=== PATIENT | male | born 1950 | race Caucasian/White ===

== ENCOUNTER 2020-08-09 12:18 | Day surgery (SDC) | payer MEDICARE ==
[2020-08-09] VITALS (10 sets, daily range): BP systolic 116–164; BP diastolic 73–102; PULSE 64–73; TEMP 98–98.7
[~2020-08-09] VITALS: Ht 175.3 cm; Wt 84.9 kg
[2020-08-09] MEDS ORDERED: PRINZIDE 25 MG-1 TAB PO (13:07)
[2020-08-09] MEDS ORDERED: LOPID 600M600 MG/TAB PO (13:08)
[2020-08-09] MEDS ORDERED: ZOCOR 20MG20 MG PO (13:08)
[2020-08-09] MEDS ORDERED: ASPIRIN 81M81 MG/TA2 PO (13:09)
--- NOTE | 2020-08-09 19:31 | NUR ---
Patient resting in bed. Cbi slowed. Light pink output. He tolerated dinner. Iv to INT. Vss, improved after tylenol for pain. Patient spoke to his on the phone and updated her. Scds ble. Report to night nurse
--- NOTE | 2020-08-09 20:00 | NUR ---
Report received, assumed care for shift lab technician. Assessment complete. VS stable. A&Ox3. Denies pain/nausea/shortness of breath. CBI running at slow to mmoderate reate-output light pink-no clots noted. Plan of care discussed for this shift to include HS meds/calling for questions/concerns/pain. Verbalizes understanding/denies questions/concerns. Call light in reach. Will monitor.
[2020-08-10 00:20] VITALS: BP 126/77; PULSE 56; TEMP 98.1
[2020-08-10 03:33] VITALS: BP 126/77; PULSE 81; TEMP 97.9
[2020-08-10 07:44] VITALS: BP 137/74; PULSE 96; TEMP 98.4
--- NOTE | 2020-08-10 08:00 | NUR ---
PATIENT IS A&O. VSS. DENIES ANY PAIN. CBI INFUSING AT MOD RATE TO KEEP URINE PINK. THOMPSON TO DD. WHEN CBI TURNED DOWN, URINE TURNS TO A DARK RED. PATIENT SCHEDULED FOR MITOMYCIN THIS AM. SRAVANTHI MONDRAGON AWARE. HEAD TO TOE ASSESSMENT COMPLETE. NO C/O N/V. RIGHT HAND IV TO INT. BREAKFAST TRAY AT BEDSIDE. AM MEDS GIVEN. NO OTHER NEEDS. CALL LIGHT IN REACH.
--- NOTE | 2020-08-10 09:27 | NUR ---
LILLY met with the patient to discuss discharge plan. The patient lives in [place] with his , Christina (ph#[phone]). He reports independence with ADLs and does not have any DME. The patient's primary care provider is Molly Woods at the [facility] and he receives his medications from [facility]. He reports no difficulties obtaining his meds. The patient does not have a DPOA-HC in EMR, but he states that he does have one completed and that his is his DPOA-HC. The patient plans to return home with his upon discharge. No additional needs at this time.
--- NOTE | 2020-08-10 10:19 | NUR ---
Met with pt earlier this am to discuss mitomycin administration. Pt was aware that this would likely happen. Mitomycin handouts were provided to pt and reviewed verbally as well. Reinforced importance of repositioning q 15 minutes during 2 hour dwell time and precautions to follow after actualy mitomycin is drained. Chemotherapy precautions were observed during the administration of the mitomycin with appropriate PPE used proper disposal of contaminated items, and signage placed at door for other staff instruction.
--- NOTE | 2020-08-10 10:23 | NUR ---
Report to Carmen FISHMAN after administration.
--- NOTE | 2020-08-10 11:55 | NUR ---
First visit from the shoe folder. Chaplain mcgill for patient while standing outside of door.
[2020-08-10 12:27] VITALS: BP 119/75; PULSE 91; TEMP 97.9
--- NOTE | 2020-08-10 12:27 | NUR ---
Two hour dwell time is completed and dickens was unclamped and allowed to drain. Urine is red in color but no clots were seen. 500ml of urine was drained and then CBI was started slowly. Chemotherapy precautions were followed during this process and pt is still hoping to see Dr Roldan to talk about his surgery. Report to Carmen FISHMAN.
[2020-08-10 15:57] VITALS: BP 121/68; PULSE 63; TEMP 97.8
--- NOTE | 2020-08-10 16:30 | NUR ---
CBI discomtinued. Pericare provided before and after removal. 15ml water removed from the balloon. Tip intact. Chemo precautions followed by the nurse. Patient tolerated well. Instilled 250ml fluid into bladder. Patient informed to void in urinal and that nursing staff will assess urine and monitor. Patient verbalized an understanding. No further needs expressed from the patient. Call light within reach
--- NOTE | 2020-08-10 18:10 | NUR ---
Discharge paperwork reviewed with the patient. Patient verbalized an understanding to follow doctors orders. IV removed, tip intact. Bandaid applied, patient tolerated well. No further needs expressed from the patient. Patient taken by wheelchair to ER entrance by nursing staff. No further needs expressed from the patient
== END 2020-08-10 18:20 | disposition home or self-care (01) ==
LOC: SDCO 12:18 → SURG 16:38 → SDCO 08-10 18:20
DX: D09.0 Carcinoma in situ of bladder (principal); N20.1 Calculus of ureter; I10 Essential (primary) hypertension; E78.5 Hyperlipidemia, unspecified; F17.210 Nicotine dependence, cigarettes, uncomplicated; Z79.899 Other long term (current) drug therapy; Z79.82 Long term (current) use of aspirin
CPT/HCPCS: OP; C1769; J0690; J1100; J2405; J2704; J3010; J7120; J9280; Q9967